=== PATIENT | male | born 1955 | race Caucasian/White ===

== ENCOUNTER 2019-01-26 02:49 | Inpatient (IN) | payer MEDICARE, OTHER ==
[2019-01-26] VITALS (8 sets, daily range): BP systolic 140–166; BP diastolic 87–99; PULSE 85–96; RESP 19–22; Ht 188 cm; Wt 80.0 kg
[~2019-01-26] VITALS: Ht 188 cm; Wt 80.0 kg
[~2019-01-26 02:49] MED LIST: HYDR25TA6 GTB; LISI30TA47 PO; MULT1CAP20 PO; PANT40TA3 PO; PARO40TA63 PO; RISP2TAB3 PO
[2019-01-26] MEDS ORDERED: hydrALAzine 20 MG INJ IV ONE (05:30)
[2019-01-26] MEDS ORDERED: LORAZEPAM 2 MG INJ IV ONE ×2 (05:30→07:00)
--- NOTE | 2019-01-26 05:38 | ERD ---
ER Documentation Chief Complaint Chief Complaint BIBA for general weakness HPI This is a 64-year-old male brought in by rescue for complaints of generalized weakness and altered mental status. Per the significant other, patient woke up and seemed confused. He had no evidence of trauma per the patient with you. A [id number] global he went to bed about 9 PM and seemed normal, woke up with middle of the night to go to the restroom. She woke up to go grab a glass of water, and noticed that when she questions and is altered. She denies any weakness or drooping face, but he seemed confused. ROS All systems reviewed and are negative except as per history of present illness. Medications Home Meds Active Scripts Multivitamins* (Multivitamin*) 1 Udcap Capsule, 1 TAB PO DAILY for 30 Days, TAB Prov:ALBERTO ZAMBRANO 05/09/16 Reported Medications Risperidone* (Risperidone*) 2 Mg Tablet, 2 MG PO HS 09/29/13 Pantoprazole* (Protonix*) 40 Mg Tablet.dr, 40 MG PO DAILY 09/29/13 Hydrochlorothiazide* (Hydrochlorothiazide*) 25 Mg Tab, 12.5 MG GTB DAILY 09/29/13 Paroxetine Hcl* (Paxil*) 40 Mg Tablet, 40 MG PO DAILY 09/29/13 Lisinopril* (Lisinopril*) 30 Mg Tablet, 40 MG PO DAILY 09/29/13 Allergies Allergies: Coded Allergies: No Known Allergy (Unverified , 01/26/19) PMhx/Soc History of Surgery: Yes (back surgery ) Anesthesia Reaction: No Hx Neurological Disorder: No Hx Respiratory Disorders: No Hx Cardiac Disorders: Yes (HTN) Hx Psychiatric Problems: Yes (prescription drug abuse (ambien)) Hx Miscellaneous Medical Probl: Yes (SEIZURE, HEP. C, insomnia) Hx Alcohol Use: Yes (daily, last drink midnight 01/26/19) Hx Substance Use: No Hx Tobacco Use: Yes Smoking Status: Never smoker Physical Exam Vitals Vital Signs Date Temp Pulse Resp B/P (MAP) Pulse Ox O2 O2 Flow FiO2 Time Delivery Rate 01/26/19 98.3 74 16 170/100 95 Room Air 05:07 (123) 01/26/19 97.9 89 16 156/94 95 02:55 (114) Physical Exam Const: No acute distress Head: Atraumatic Eyes: Normal Conjunctiva ENT: Normal External Ears, Nose and Mouth. Neck: Full range of motion. No meningismus. Resp: Clear to auscultation bilaterally Cardio: Regular rate and rhythm, no murmurs Abd: Soft, non tender, non distended. Normal bowel sounds Skin: No petechiae or rashes Back: No midline or flank tenderness Ext: No cyanosis, or edema Neur: Awake and alert Psych: Normal Mood and Affect Result Diagram: 01/26/1943101/26/19431 Results 24 hrs Laboratory Tests Test 01/26/19 04:08 01/26/19 04:32 01/26/19 04:34 01/26/19 04:47 POC Venous 2.1 mmol/L 2.0 mmol/L Lactate White Blood Count 8.2 10^3/ul Red Blood Count 4.18 10^6/ul Hemoglobin 13.9 g/dl Hematocrit 46.3 % Mean Corpuscular 110.8 fl Volume Mean Corpuscular 33.3 pg Hemoglobin Mean Corpuscular 30.0 g/dl Hemoglobin Concen t Red Cell 12.2 % Distribution Width Platelet Count 203 10^3/UL Mean Platelet 9.2 fl Volume Immature 0.600 % Granulocytes % Neutrophils % 88.5 % Lymphocytes % 5.4 % Monocytes % 4.9 % Eosinophils % 0.2 % Basophils % 0.4 % Nucleated Red 0.0 /100WBC Blood Cells % Immature 0.050 10^3/ul Granulocytes # Neutrophils # 7.3 10^3/ul Lymphocytes # 0.4 10^3/ul Monocytes # 0.4 10^3/ul Eosinophils # 0.0 10^3/ul Basophils # 0.0 10^3/ul Nucleated Red 0.0 10^3/ul Blood Cells # Prothrombin Time 13.6 Sec Prothrombin Time 1.1 Ratio INR International 1.03 Normalized Ratio Activated 31.6 Sec Partial Thrombopl ast Time Sodium Level 137 mmol/L Potassium Level 4.6 mmol/L Chloride Level 99 mmol/L Carbon Dioxide 28 mmol/L Level Anion Gap 10 Blood Urea 9 mg/dl Nitrogen Creatinine 0.61 mg/dl Est Glomerular > 60 mL/min Filtrat Rate mL/min Glucose Level 182 mg/dl Calcium Level 8.6 mg/dl Total Bilirubin 0.4 mg/dl Direct Bilirubin 0.00 mg/dl Indirect 0.4 mg/dl Bilirubin Aspartate Amino 37 IU/L Transf (AST/SGOT) Alanine 16 IU/L Aminotransferase (ALT/SGPT) Alkaline 208 IU/L Phosphatase Ammonia < 9 umol/l Troponin I < 0.012 ng/ml Total Protein 7.6 g/dl Albumin 4.0 g/dl Globulin 3.60 g/dl Albumin/Globulin 1.11 Ratio Salicylates Level < 1.0 mg/dl Acetaminophen < 10.0 ug/ml Level Ethyl Alcohol < 10.0 mg/dl Level Urine Color YELLOW Urine Clarity CLEAR Urine pH 5.0 Urine Specific 1.018 [place] Urine Ketones NEGATIVE mg/dL Urine Nitrite NEGATIVE mg/dL Urine Bilirubin NEGATIVE mg/dL Urine NEGATIVE mg/dL Urobilinogen Urine Leukocyte NEGATIVE Gina/ul Esterase Urine Hemoglobin NEGATIVE mg/dL Urine Glucose NEGATIVE mg/dL Urine Total NEGATIVE mg/dl Protein Urine Opiates Negative Screen Urine Negative Barbiturates Urine Negative Amphetamines Screen Urine Negative Benzodiazepines Screen Urine Cocaine Negative Screen Urine Negative Cannabinoids Current Medications Medications Dose Sig/Henry Start Time Status Last (Trade) Ordered Route PRN Stop Time Admin Dose Reason Admin Hydralazine 10 mg ONCE ONCE 01/26/19 DC HCl IV 05:30 (Apresoline) 01/26/19 05:31 Lorazepam 1 mg ONCE ONCE 01/26/19 DC (Ativan) IV 05:30 01/26/19 05:31 Procedures/MDM Emergency room course: Patient seen by the charge nurse. Placed in bed from evaluation pupils are continuous cardiac monitoring with continuous pulse oximetry. Serial exams are stable. Patient had blood pressure treated here in the emergency department with hydralazine. Given Ativan per request. Diagnostic studies EKG: Rate/Rhythm: [Normal Sinus Rhythm] QRS, ST, T-waves: [No changes consistent w/ acute ischemia] Impression: [No evidence of ischemia or arrhythmia] Chest X-ray 1V Interpreted by me: Soft Tissue: No acute abnormalities Bones: No acute abnormalities Mediastinum/Cardiac Silhouette/Lungs: [No acute abnormalities] Medical decision making: This very pleasant patient has what looks to be alteration in mental status. Patient will be admitted to the hospitalist who can accept the patient to service for further evaluation and management. Departure Diagnosis: Primary Impression: Altered mental status Altered mental status type: unspecified Qualified Codes: R41.82 - Altered mental status, unspecified Condition: Serious MOGHADAM,CHIP S. Jan 26, 2019 05:38
[2019-01-26] MEDS ORDERED: LISI40TA3 PO (05:45)
[2019-01-26] MEDS ORDERED: RIVA1.5C2 PO (05:45)
[2019-01-26] MEDS ORDERED: CARI350T29 PO (05:45)
[2019-01-26] MEDS ORDERED: ARIP5TAB20 PO (05:45)
[2019-01-26] MEDS ORDERED: ZOLP10TA5 PO (05:45)
[2019-01-26] MEDS ORDERED: CARB200T3 PO (05:45)
[2019-01-26] MEDS ORDERED: MIRT15TA5 PO (05:45)
[2019-01-26] MEDS ORDERED: ALPR1TAB7 PO (05:45)
[2019-01-26] MEDS ORDERED: ALBUTEROL/IPRATROPIUM (NEB) 3 ML AMP HHN PRN (07:00)
[2019-01-26] MEDS ORDERED: ONDANSETRON 4 MG INJ IV PRN (07:00)
[2019-01-26] MEDS ORDERED: ACETAMINOPHEN 325 MG TAB PO PRN (07:00)
[2019-01-26] MEDS ORDERED: NACL 0.9% 3 ML SYG IV SCH (07:00)
--- NOTE | 2019-01-26 08:55 | HP ---
Date/Time of Note Date/Time of Note DATE: 01/26/19 TIME: 08:50 Assessment/Plan VTE Prophylaxis Pharmacological prophylaxis: heparin Lines/Catheters IV Catheter Type (from Nrsg): Saline Lock Assessment/Plan Assessment/Plan 64-year-old male with a history of hypertension, seizure, hep C, history of intentional overdose, likely on [place] and Ambien in 2016 here with acute onset encephalopathy. PLAN -Not able to obtain history from patient. Head CT, U-tox and basic labs and diagnostic. This could be from polypharmacy. -Plan is to monitor in telemetry unit, obtain MRI of the brain, PT and speech/swallow eval -I held his home medications for now. -Neurology consult Result Diagram: 01/26/19 0432 01/26/19 0432 Results 24hrs Laboratory Tests Test 01/26/19 04:08 01/26/19 04:32 01/26/19 04:34 01/26/19 04:47 POC Venous Lactate 2.1 *H 2.0 White Blood Count 8.2 # Red Blood Count 4.18 L Hemoglobin 13.9 L Hematocrit 46.3 Mean Corpuscular 110.8 H Volume Mean Corpuscular 33.3 H Hemoglobin Mean Corpuscular 30.0 L Hemoglobin Concent Red Cell 12.2 Distribution Width Platelet Count 203 Mean Platelet Volume 9.2 Immature 0.600 H Granulocytes % Neutrophils % 88.5 H Lymphocytes % 5.4 L Monocytes % 4.9 Eosinophils % 0.2 Basophils % 0.4 Nucleated Red Blood 0.0 Cells % Immature 0.050 H Granulocytes # Neutrophils # 7.3 Lymphocytes # 0.4 L Monocytes # 0.4 Eosinophils # 0.0 Basophils # 0.0 Nucleated Red Blood 0.0 Cells # Prothrombin Time 13.6 Prothrombin Time 1.1 Ratio INR International 1.03 Normalized Ratio Activated 31.6 Partial Thromboplast Time Sodium Level 137 Potassium Level 4.6 Chloride Level 99 Carbon Dioxide Level 28 Anion Gap 10 Blood Urea Nitrogen 9 Creatinine 0.61 Est Glomerular > 60 Filtrat Rate mL/min Glucose Level 182 Calcium Level 8.6 Total Bilirubin 0.4 Direct Bilirubin 0.00 Indirect Bilirubin 0.4 Aspartate Amino 37 Transf (AST/SGOT) Alanine 16 Aminotransferase (AL T/SGPT) Alkaline Phosphatase 208 H Ammonia < 9 L Troponin I < 0.012 Total Protein 7.6 Albumin 4.0 Globulin 3.60 H Albumin/Globulin 1.11 Ratio Salicylates Level < 1.0 L Acetaminophen Level < 10.0 L Ethyl Alcohol Level < 10.0 H Urine Color YELLOW Urine Clarity CLEAR Urine pH 5.0 Urine Specific 1.018 [place] Urine Ketones NEGATIVE Urine Nitrite NEGATIVE Urine Bilirubin NEGATIVE Urine Urobilinogen NEGATIVE Urine Leukocyte NEGATIVE Esterase Urine Hemoglobin NEGATIVE Urine Glucose NEGATIVE Urine Total Protein NEGATIVE Urine Opiates Screen Negative Urine Barbiturates Negative Urine Amphetamines Negative Screen Urine Negative Benzodiazepines Screen Urine Cocaine Screen Negative Urine Cannabinoids Negative Test 01/26/19 07:16 Lactic Acid Level 2.3 *H Ammonia < 9 L HPI/ROS Admit Date/Time Admit Date/Time Hx of Present Illness This is a 64-year-old male with a history of hypertension, seizure, hep C, history of intentional overdose, likely on [place] and Ambien in 2015. Patient was brought to the ER for altered mentation. Patient appears restless and is not oriented and as such information is gathered from chart review and from the ER physician. Reportedly, patient woke up in the middle of the night and was noted to be altered. In the ER blood pressure was as high as 173/98. Head CT negative for acute findings. Basic labs within acceptable range. U tox was negative. PMH/Family/Social Past Medical History Medical History: other (See HPI) Medications Current Medications IV Flush (NS 3 ml) 3 ml PER PROTOCOL IV ; Start 01/26/19 at 07:00 Ondansetron HCl (Zofran Inj) 4 mg Q6H PRN IV NAUSEA/VOMITING; Start 01/26/19 at 07:00 Acetaminophen (Tylenol Tab) 650 mg Q6H PRN PO .PAIN 1-3 OR TEMP; Start 01/26/19 at 07:00 Heparin Sodium (Porcine) (Heparin (5000 Units/1ml)) 5,000 unit Q12 SC ; Start 01/26/19 at 09:00 Albuterol/ Ipratropium (Duoneb) 3 ml Q2H RESP THERAPY PRN HHN SHORTNESS OF BREATH; Start 01/26/19 at 07:00 Pantoprazole (Protonix Tab) 40 mg DAILY PO ; Start 01/26/19 at 09:00 Nicotine (Nicoderm 21 Mg/ 24hr) 1 patch ONCE ONCE TRANSDERM ; Start 01/26/19 at 09:00; Stop 01/26/19 at 09:01 Dextrose/Sodium Chloride 1,000 ml @ 100 mls/hr Q10H IV ; Start 01/26/19 at 09:00 Haloperidol (Haldol) 5 mg ONCE ONCE IM ; Start 01/26/19 at 09:00; Stop 01/26/19 at 09:01; Status UNV Coded Allergies: No Known Allergy (Unverified , 01/26/19) Past Surgical History Past Surgical Hx: other (See HPI) Family History Significant Family History: other (Unknown) Social History Alcohol Use: other (Unknown) Smoking Status: Unknown if ever smoked Drug Use: other (Unknown) Exam/Review of Systems Vital Signs Vitals Vital Signs Date Temp Pulse Resp B/P (MAP) Pulse Ox O2 O2 Flow FiO2 Time Delivery Rate 01/26/19 98.3 103 20 119/80 100 07:00 (93) 01/26/19 Room Air 05:42 Exam Constitutional: other (Patient lying in the gurney. Appears listless. Uncovering himself. Not oriented) Head: normocephalic, atraumatic Eyes: PERRL Respiratory: clear to auscultation Cardiovascular: other (Tachycardic regular rhythm) Gastrointestinal: soft Extremities: normal pulses CHIP LUTZ MD Jan 26, 2019 08:55
[2019-01-26] MEDS: PANTOPRAZOLE (EC) 40 MG TAB PO SCH (09:00)
[2019-01-26] MEDS ORDERED: HALOPERIDOL 5 MG INJ IM ONE ×2 (09:00→20:30)
[2019-01-26] MEDS ORDERED: NICOTINE (21 MG/24 HR) PATCH TRANSDERM ONE (09:00)
[2019-01-26] MEDS: DEXTROSE 5%-0.45% NACL 1,000 ML IV SCH ×2 (09:11→18:23)
[2019-01-26] MEDS: HEPARIN 5,000 UNIT/1 ML VIAL SC SCH ×2 (09:12→20:43)
--- NOTE | 2019-01-26 12:51 | PN ---
Date/Time of Note Date/Time of Note DATE: 01/26/19 TIME: 12:31 Assessment/Plan VTE Prophylaxis SCD applied (from Nsg): Yes Pharmacological prophylaxis: heparin Lines/Catheters IV Catheter Type (from Nrsg): Saline Lock Assessment/Plan Assessment/Plan 1. Acute encephalopathy, likely alcohol related, 30 beers a day, supportive care 2. Alcoholism, thiamine/folic acid, ativan prn 3. Seizure disorder, keppra 4. Hypertension, stable 5. Hep C 6. Tobacco use, patch 7. Acute bronchitis, levaquin 8. DVT prophylaxis: heparin Result Diagram: 01/26/1943101/26/19431 Results 24hrs Laboratory Tests Test 01/26/19 04:08 01/26/19 04:32 01/26/19 04:34 01/26/19 04:47 POC Venous Lactate 2.1 *H 2.0 White Blood Count 8.2 # Red Blood Count 4.18 L Hemoglobin 13.9 L Hematocrit 46.3 Mean Corpuscular 110.8 H Volume Mean Corpuscular 33.3 H Hemoglobin Mean Corpuscular 30.0 L Hemoglobin Concent Red Cell 12.2 Distribution Width Platelet Count 203 Mean Platelet Volume 9.2 Immature 0.600 H Granulocytes % Neutrophils % 88.5 H Lymphocytes % 5.4 L Monocytes % 4.9 Eosinophils % 0.2 Basophils % 0.4 Nucleated Red Blood 0.0 Cells % Immature 0.050 H Granulocytes # Neutrophils # 7.3 Lymphocytes # 0.4 L Monocytes # 0.4 Eosinophils # 0.0 Basophils # 0.0 Nucleated Red Blood 0.0 Cells # Prothrombin Time 13.6 Prothrombin Time 1.1 Ratio INR International 1.03 Normalized Ratio Activated 31.6 Partial Thromboplast Time Sodium Level 137 Potassium Level 4.6 Chloride Level 99 Carbon Dioxide Level 28 Anion Gap 10 Blood Urea Nitrogen 9 Creatinine 0.61 Est Glomerular > 60 Filtrat Rate mL/min Glucose Level 182 Calcium Level 8.6 Total Bilirubin 0.4 Direct Bilirubin 0.00 Indirect Bilirubin 0.4 Aspartate Amino 37 Transf (AST/SGOT) Alanine 16 Aminotransferase (AL T/SGPT) Alkaline Phosphatase 208 H Ammonia < 9 L Troponin I < 0.012 Total Protein 7.6 Albumin 4.0 Globulin 3.60 H Albumin/Globulin 1.11 Ratio Salicylates Level < 1.0 L Acetaminophen Level < 10.0 L Ethyl Alcohol Level < 10.0 H Urine Color YELLOW Urine Clarity CLEAR Urine pH 5.0 Urine Specific 1.018 [place] Urine Ketones NEGATIVE Urine Nitrite NEGATIVE Urine Bilirubin NEGATIVE Urine Urobilinogen NEGATIVE Urine Leukocyte NEGATIVE Esterase Urine Hemoglobin NEGATIVE Urine Glucose NEGATIVE Urine Total Protein NEGATIVE Urine Opiates Screen Negative Urine Barbiturates Negative Urine Amphetamines Negative Screen Urine Negative Benzodiazepines Screen Urine Cocaine Screen Negative Urine Cannabinoids Negative Test 01/26/19 07:16 Lactic Acid Level 2.3 *H Ammonia < 9 L Subjective 24 Hr Interval Summary Free Text/Dictation lethargic, no distress. slurred in speech cough with greenish sputum Exam/Review of Systems Exam Vitals Vital Signs Date Temp Pulse Resp B/P (MAP) Pulse Ox O2 O2 Flow FiO2 Time Delivery Rate 01/26/19 98.5 93 154/91 95 12:12 (112) 01/26/19 18 Room Air 11:50 Constitutional: oriented, other (lethargic) Head: normocephalic, atraumatic Eyes: nl conjunctiva, EOMI, nl lids, PERRL ENMT: nl external ears & nose, nl lips & teeth, nl nasal mucosa & septum Neck: supple, non-tender Respiratory: clear to auscultation, normal air movement; No congested cough, No crackles/rales, No diminished breath sounds, No intercostal retraction, No labored breathing, No respirations, No tactile fremitus, No wheezing, No other Cardiovascular: regular rate and rhythm, nl pulses; No bruits, No diastolic murmur, No edema, No gallop, No irregular rhythm, No jugular venous distention (JVD), No murmurs/extra sounds, No rub, No systolic murmur, No S3, No S4, No other Gastrointestinal: soft, nl liver, spleen, non-tender Musculoskeletal: nl extremities to inspection Extremities: normal pulses; No calf tenderness, No cyanosis, No clubbing, No edema, No pitting pedal edema, No palpable cord, No tenderness, No other Neurological: SUPERVISOR FIREARMS II-XII intact, lethargic Results Results 24hrs Laboratory Tests Test 01/26/19 04:08 01/26/19 04:32 01/26/19 04:34 01/26/19 04:47 POC Venous Lactate 2.1 *H 2.0 White Blood Count 8.2 # Red Blood Count 4.18 L Hemoglobin 13.9 L Hematocrit 46.3 Mean Corpuscular 110.8 H Volume Mean Corpuscular 33.3 H Hemoglobin Mean Corpuscular 30.0 L Hemoglobin Concent Red Cell 12.2 Distribution Width Platelet Count 203 Mean Platelet Volume 9.2 Immature 0.600 H Granulocytes % Neutrophils % 88.5 H Lymphocytes % 5.4 L Monocytes % 4.9 Eosinophils % 0.2 Basophils % 0.4 Nucleated Red Blood 0.0 Cells % Immature 0.050 H Granulocytes # Neutrophils # 7.3 Lymphocytes # 0.4 L Monocytes # 0.4 Eosinophils # 0.0 Basophils # 0.0 Nucleated Red Blood 0.0 Cells # Prothrombin Time 13.6 Prothrombin Time 1.1 Ratio INR International 1.03 Normalized Ratio Activated 31.6 Partial Thromboplast Time Sodium Level 137 Potassium Level 4.6 Chloride Level 99 Carbon Dioxide Level 28 Anion Gap 10 Blood Urea Nitrogen 9 Creatinine 0.61 Est Glomerular > 60 Filtrat Rate mL/min Glucose Level 182 Calcium Level 8.6 Total Bilirubin 0.4 Direct Bilirubin 0.00 Indirect Bilirubin 0.4 Aspartate Amino 37 Transf (AST/SGOT) Alanine 16 Aminotransferase (AL T/SGPT) Alkaline Phosphatase 208 H Ammonia < 9 L Troponin I < 0.012 Total Protein 7.6 Albumin 4.0 Globulin 3.60 H Albumin/Globulin 1.11 Ratio Salicylates Level < 1.0 L Acetaminophen Level < 10.0 L Ethyl Alcohol Level < 10.0 H Urine Color YELLOW Urine Clarity CLEAR Urine pH 5.0 Urine Specific 1.018 [place] Urine Ketones NEGATIVE Urine Nitrite NEGATIVE Urine Bilirubin NEGATIVE Urine Urobilinogen NEGATIVE Urine Leukocyte NEGATIVE Esterase Urine Hemoglobin NEGATIVE Urine Glucose NEGATIVE Urine Total Protein NEGATIVE Urine Opiates Screen Negative Urine Barbiturates Negative Urine Amphetamines Negative Screen Urine Negative Benzodiazepines Screen Urine Cocaine Screen Negative Urine Cannabinoids Negative Test 01/26/19 07:16 Lactic Acid Level 2.3 *H Ammonia < 9 L Medications Medication Current Medications IV Flush (NS 3 ml) 3 ml PER PROTOCOL IV ; Start 01/26/19 at 07:00 Ondansetron HCl (Zofran Inj) 4 mg Q6H PRN IV NAUSEA/VOMITING; Start 01/26/19 at 07:00 Acetaminophen (Tylenol Tab) 650 mg Q6H PRN PO .PAIN 1-3 OR TEMP; Start 01/26/19 at 07:00 Heparin Sodium (Porcine) (Heparin (5000 Units/1ml)) 5,000 unit Q12 SC Last administered on 01/26/19at 09:12; Admin Dose 5,000 UNIT; Start 01/26/19 at 09:00 Albuterol/ Ipratropium (Duoneb) 3 ml Q2H RESP THERAPY PRN HHN SHORTNESS OF BREATH; Start 01/26/19 at 07:00 Pantoprazole (Protonix Tab) 40 mg DAILY PO ; Start 01/26/19 at 09:00 Dextrose/Sodium Chloride 1,000 ml @ 100 mls/hr Q10H IV Last administered on 01/26/19at 09:11; Admin Dose 100 MLS/HR; Start 01/26/19 at 09:00 VADIM ARCHULETA MD Jan 26, 2019 12:44
[2019-01-26] MEDS: LEVOFLOXACIN 500 MG TAB PO SCH (13:35)
[2019-01-26] MEDS: LEVETIRACETAM 500 MG TAB PO SCH ×2 (13:35→20:41)
[2019-01-26] MEDS: LORAZEPAM 1 MG TAB PO PRN (16:03)
[2019-01-26] MEDS: LORAZEPAM 2 MG INJ IV PRN (20:44)
[2019-01-27] VITALS (14 sets, daily range): BP systolic 110–175; BP diastolic 66–95; PULSE 68–95; RESP 19–22
[2019-01-27] MEDS ORDERED: hydrALAzine 20 MG INJ IV ONE (00:30)
[2019-01-27] MEDS ORDERED: LABETALOL HCL 20MG INJ IV ONE (03:00)
[2019-01-27] MEDS: DEXTROSE 5%-0.45% NACL 1,000 ML IV SCH ×2 (05:52→15:00)
[2019-01-27] MEDS: LORAZEPAM 2 MG INJ IV PRN ×3 (07:38→18:23)
[2019-01-27] MEDS: LEVOFLOXACIN 500 MG TAB PO SCH (09:08)
[2019-01-27] MEDS: PANTOPRAZOLE (EC) 40 MG TAB PO SCH (09:09)
[2019-01-27] MEDS: FOLIC ACID 1 MG TAB PO SCH (09:09)
[2019-01-27] MEDS: THIAMINE 100 MG TAB PO SCH (09:09)
[2019-01-27] MEDS: LEVETIRACETAM 500 MG TAB PO SCH ×2 (09:09→21:13)
[2019-01-27] MEDS: HEPARIN 5,000 UNIT/1 ML VIAL SC SCH ×2 (09:25→21:14)
[2019-01-27] MEDS: COLLAGENASE 5 GM (UD JAR) TOP SCH (10:12)
--- NOTE | 2019-01-27 14:33 | PN ---
Date/Time of Note Date/Time of Note DATE: 01/27/19 TIME: 14:31 Assessment/Plan VTE Prophylaxis Risk score (from Ns)>0 risk: 4 SCD applied (from Ns): Yes Pharmacological prophylaxis: heparin Lines/Catheters IV Catheter Type (from Nrsg): Peripheral IV Assessment/Plan Assessment/Plan 1. Acute encephalopathy, likely alcohol related, 30 beers a day, supportive care, continue PT 2. Alcoholism, thiamine/folic acid, ativan prn 3. Seizure disorder, keppra 4. Hypertension, stable 5. Hep C 6. Tobacco use, patch 7. Acute bronchitis, levaquin 8. DVT prophylaxis: heparin Result Diagram: 01/27/1951801/27/19518 Results 24hrs Laboratory Tests Test 01/27/19 05:19 White Blood Count 6.6 Red Blood Count 4.55 L Hemoglobin 14.5 Hematocrit 43.2 Mean Corpuscular Volume 94.9 Mean Corpuscular Hemoglobin 31.9 Mean Corpuscular Hemoglobin Concent 33.6 Red Cell Distribution Width 12.6 Platelet Count 239 Mean Platelet Volume 9.4 Immature Granulocytes % 0.300 Neutrophils % 75.4 Lymphocytes % 15.4 Monocytes % 8.4 Eosinophils % 0.2 Basophils % 0.3 Nucleated Red Blood Cells % 0.0 Immature Granulocytes # 0.020 Neutrophils # 4.9 Lymphocytes # 1.0 Monocytes # 0.6 Eosinophils # 0.0 Basophils # 0.0 Nucleated Red Blood Cells # 0.0 Sodium Level 137 Potassium Level 3.9 Chloride Level 101 Carbon Dioxide Level 26 Anion Gap 10 Blood Urea Nitrogen 6 L Creatinine 0.53 L Est Glomerular Filtrat Rate mL/min > 60 Glucose Level 120 # Calcium Level 8.7 Magnesium Level 2.1 Total Bilirubin 0.5 Direct Bilirubin 0.00 Indirect Bilirubin 0.5 Aspartate Amino Transf (AST/SGOT) 44 Alanine Aminotransferase (ALT/SGPT) 19 Alkaline Phosphatase 215 H Total Protein 7.6 Albumin 3.8 Globulin 3.80 H Albumin/Globulin Ratio 1.00 Subjective 24 Hr Interval Summary Free Text/Dictation still with slurred speech, needs a walker to keep balance Exam/Review of Systems Exam Vitals Vital Signs Date Temp Pulse Resp B/P (MAP) Pulse Ox O2 O2 Flow FiO2 Time Delivery Rate 01/27/19 77 12:01 01/27/19 98.1 19 110/67 98 11:03 (81) 3/12/19 21 16:39 01/26/19 Room Air 11:50 Intake and Output 01/26/19 01/26/19 01/27/19 1515:00 23:00 07:00 IntakeIntake Total 600 ml 700 ml BalanceBalance 600 ml 700 ml Constitutional: alert, oriented, well developed Head: normocephalic, atraumatic Eyes: nl conjunctiva, EOMI, nl lids, PERRL ENMT: nl external ears & nose, nl lips & teeth, nl nasal mucosa & septum Neck: supple, non-tender Respiratory: clear to auscultation, normal air movement; No congested cough, No crackles/rales, No diminished breath sounds, No intercostal retraction, No labored breathing, No respirations, No tactile fremitus, No wheezing, No other Cardiovascular: regular rate and rhythm, nl pulses; No bruits, No diastolic murmur, No edema, No gallop, No irregular rhythm, No jugular venous distention (JVD), No murmurs/extra sounds, No rub, No systolic murmur, No S3, No S4, No other Gastrointestinal: soft, nl liver, spleen, non-tender Musculoskeletal: nl extremities to inspection Extremities: normal pulses; No calf tenderness, No cyanosis, No clubbing, No edema, No pitting pedal edema, No palpable cord, No tenderness, No other Neurological: SUPERVISOR LIME II-XII intact, nl mental status, nl speech, nl strength Results Results 24hrs Laboratory Tests Test 01/27/19 05:19 White Blood Count 6.6 Red Blood Count 4.55 L Hemoglobin 14.5 Hematocrit 43.2 Mean Corpuscular Volume 94.9 Mean Corpuscular Hemoglobin 31.9 Mean Corpuscular Hemoglobin Concent 33.6 Red Cell Distribution Width 12.6 Platelet Count 239 Mean Platelet Volume 9.4 Immature Granulocytes % 0.300 Neutrophils % 75.4 Lymphocytes % 15.4 Monocytes % 8.4 Eosinophils % 0.2 Basophils % 0.3 Nucleated Red Blood Cells % 0.0 Immature Granulocytes # 0.020 Neutrophils # 4.9 Lymphocytes # 1.0 Monocytes # 0.6 Eosinophils # 0.0 Basophils # 0.0 Nucleated Red Blood Cells # 0.0 Sodium Level 137 Potassium Level 3.9 Chloride Level 101 Carbon Dioxide Level 26 Anion Gap 10 Blood Urea Nitrogen 6 L Creatinine 0.53 L Est Glomerular Filtrat Rate mL/min > 60 Glucose Level 120 # Calcium Level 8.7 Magnesium Level 2.1 Total Bilirubin 0.5 Direct Bilirubin 0.00 Indirect Bilirubin 0.5 Aspartate Amino Transf (AST/SGOT) 44 Alanine Aminotransferase (ALT/SGPT) 19 Alkaline Phosphatase 215 H Total Protein 7.6 Albumin 3.8 Globulin 3.80 H Albumin/Globulin Ratio 1.00 Medications Medication Current Medications IV Flush (NS 3 ml) 3 ml PER PROTOCOL IV ; Start 01/26/19 at 07:00 Ondansetron HCl (Zofran Inj) 4 mg Q6H PRN IV NAUSEA/VOMITING; Start 01/26/19 at 07:00 Acetaminophen (Tylenol Tab) 650 mg Q6H PRN PO .PAIN 1-3 OR TEMP; Start 01/26/19 at 07:00 Heparin Sodium (Porcine) (Heparin (5000 Units/1ml)) 5,000 unit Q12 SC Last administered on 01/27/19 09:25; Admin Dose 5,000 UNIT; Start 01/26/19 at 09:00 Albuterol/ Ipratropium (Duoneb) 3 ml Q2H RESP THERAPY PRN HHN SHORTNESS OF BREATH Last administered on 01/26/19 16:37; Admin Dose 3 ML; Start 01/26/19 at 07:00 Pantoprazole (Protonix Tab) 40 mg DAILY PO Last administered on 01/27/19 09:09; Admin Dose 40 MG; Start 01/26/19 at 09:00 Dextrose/Sodium Chloride 1,000 ml @ 100 mls/hr Q10H IV Last administered on 05:52; Admin Dose 100 MLS/HR; Start 01/26/19 at 09:00 Thiamine HCl (Vitamin B1) 100 mg DAILY PO Last administered on 01/27/19 09:09; Admin Dose 100 MG; Start 01/27/19 at 09:00 Folic Acid (Folic Acid) 1 mg DAILY PO Last administered on 01/27/19 09:09; Admin Dose 1 MG; Start 01/27/19 at 09:00 Lorazepam (Ativan) 1 mg Q6H PRN PO ANXIETY Last administered on 01/26/19 16:03; Admin Dose 1 MG; Start 01/26/19 at 13:00 Levetiracetam (Keppra) 500 mg BID PO Last administered on 01/27/19 09:09; Admin Dose 500 MG; Start 01/26/19 at 13:00 Levofloxacin (Levaquin) 500 mg DAILY PO Last administered on 01/27/19 09:08; Admin Dose 500 MG; Start 01/26/19 at 13:00 Lorazepam (Ativan) 1 mg Q4H PRN IV AGITATION/ANXIETY Last administered on 01/27/19 13:12; Admin Dose 1 MG; Start 01/26/19 at 19:30 Collagenase (Santyl) 1 applic DAILY TOP Last administered on 01/27/19 10:12; Admin Dose 1 APPLIC; Start 01/27/19 at 10:30 VADIM ARCHULETA MD Jan 27, 2019 14:33
[2019-01-27] MEDS: LORAZEPAM 1 MG TAB PO PRN (15:23)
--- NOTE | 2019-01-27 16:36 | PSY ---
Date/Time of Note Date/Time of Note DATE: 01/27/19 TIME: 16:24 Psychiatric Subjective Eval Consent Pt consented to telemedicine: No Subjective Evaluation Patient location: inpatient Chief Complaint: BIBA for general weakness History of present illness Patient is a 64-year-old male with history of hypertension, seizure, hep C, history of intentional overdose. On a face to face evaluation, patient is disorganized, confused., preoccupied bout being discharged. He talks to himself, responding to internal stimuli. Patient has poor impulse control, poor coping skills. Explained risk and benefits of medications to patient. Past psychiatric history Long history of Depression and cognitive impairment Hospitalization: yes Medical history Problems Medical Problems: (1) Accidental zolpidem overdose Status: Acute (2) Acute encephalopathy Status: Acute (3) Altered mental status Status: Acute (4) Dehydration Status: Acute Allergies: Coded Allergies: No Known Allergy (Unverified , 01/26/19) Substance Abuse Substance abuse history: Yes Prior substance abuse treatmen: Yes Social History Marital status: single DPA/Conservatorship: No Psychiatric Objective Eval Review of Systems: Review of Systems: Not Applicable Physical Examination: Physical Examination: Not Applicable Appetite: Decreased Energy: Decreased Interest: Decreased Mental Status Examination: Appearance: Disheveled Eye Contact: Poor Behavior: Suspicious, Agitated Speech: Clear AFFECT: Anxious Mood: Irritable Though Process: Linear Thought Content: Hallucinations Suicidal: No Homicidal: No On 72 hour hold: No Orientation: x2 Insight: Moderate Judgement: Moderate Attention Span: Distractible Laboratory Results Laboratory Tests Test 01/26/19 04:08 01/26/19 04:32 01/26/19 04:34 01/26/19 04:47 POC Venous 2.1 mmol/L 2.0 mmol/L Lactate White Blood Count 8.2 10^3/ul Red Blood Count 4.18 10^6/ul Hemoglobin 13.9 g/dl Hematocrit 46.3 % Mean Corpuscular 110.8 fl Volume Mean Corpuscular 33.3 pg Hemoglobin Mean Corpuscular 30.0 g/dl Hemoglobin Concen t Red Cell 12.2 % Distribution Width Platelet Count 203 10^3/UL Mean Platelet 9.2 fl Volume Immature 0.600 % Granulocytes % Neutrophils % 88.5 % Lymphocytes % 5.4 % Monocytes % 4.9 % Eosinophils % 0.2 % Basophils % 0.4 % Nucleated Red 0.0 /100WBC Blood Cells % Immature 0.050 10^3/ul Granulocytes # Neutrophils # 7.3 10^3/ul Lymphocytes # 0.4 10^3/ul Monocytes # 0.4 10^3/ul Eosinophils # 0.0 10^3/ul Basophils # 0.0 10^3/ul Nucleated Red 0.0 10^3/ul Blood Cells # Prothrombin Time 13.6 Sec Prothrombin Time 1.1 Ratio INR International 1.03 Normalized Ratio Activated 31.6 Sec Partial Thrombopl ast Time Sodium Level 137 mmol/L Potassium Level 4.6 mmol/L Chloride Level 99 mmol/L Carbon Dioxide 28 mmol/L Level Anion Gap 10 Blood Urea 9 mg/dl Nitrogen Creatinine 0.61 mg/dl Est Glomerular > 60 mL/min Filtrat Rate mL/min Glucose Level 182 mg/dl Calcium Level 8.6 mg/dl Total Bilirubin 0.4 mg/dl Direct Bilirubin 0.00 mg/dl Indirect 0.4 mg/dl Bilirubin Aspartate Amino 37 IU/L Transf (AST/SGOT) Alanine 16 IU/L Aminotransferase (ALT/SGPT) Alkaline 208 IU/L Phosphatase Ammonia < 9 umol/l Troponin I < 0.012 ng/ml Total Protein 7.6 g/dl Albumin 4.0 g/dl Globulin 3.60 g/dl Albumin/Globulin 1.11 Ratio Salicylates Level < 1.0 mg/dl Acetaminophen < 10.0 ug/ml Level Ethyl Alcohol < 10.0 mg/dl Level Urine Color YELLOW Urine Clarity CLEAR Urine pH 5.0 Urine Specific 1.018 [place] Urine Ketones NEGATIVE mg/dL Urine Nitrite NEGATIVE mg/dL Urine Bilirubin NEGATIVE mg/dL Urine NEGATIVE mg/dL Urobilinogen Urine Leukocyte NEGATIVE Gina/ul Esterase Urine Hemoglobin NEGATIVE mg/dL Urine Glucose NEGATIVE mg/dL Urine Total NEGATIVE mg/dl Protein Urine Opiates Negative Screen Urine Negative Barbiturates Urine Negative Amphetamines Screen Urine Negative Benzodiazepines Screen Urine Cocaine Negative Screen Urine Negative Cannabinoids Test 01/26/19 07:16 01/27/19 05:19 Lactic Acid Level 2.3 mmol/L Ammonia < 9 umol/l White Blood Count 6.6 10^3/ul Red Blood Count 4.55 10^6/ul Hemoglobin 14.5 g/dl Hematocrit 43.2 % Mean Corpuscular 94.9 fl Volume Mean Corpuscular 31.9 pg Hemoglobin Mean Corpuscular 33.6 g/dl Hemoglobin Concen t Red Cell 12.6 % Distribution Width Platelet Count 239 10^3/UL Mean Platelet 9.4 fl Volume Immature 0.300 % Granulocytes % Neutrophils % 75.4 % Lymphocytes % 15.4 % Monocytes % 8.4 % Eosinophils % 0.2 % Basophils % 0.3 % Nucleated Red 0.0 /100WBC Blood Cells % Immature 0.020 10^3/ul Granulocytes # Neutrophils # 4.9 10^3/ul Lymphocytes # 1.0 10^3/ul Monocytes # 0.6 10^3/ul Eosinophils # 0.0 10^3/ul Basophils # 0.0 10^3/ul Nucleated Red 0.0 10^3/ul Blood Cells # Sodium Level 137 mmol/L Potassium Level 3.9 mmol/L Chloride Level 101 mmol/L Carbon Dioxide 26 mmol/L Level Anion Gap 10 Blood Urea 6 mg/dl Nitrogen Creatinine 0.53 mg/dl Est Glomerular > 60 mL/min Filtrat Rate mL/min Glucose Level 120 mg/dl Calcium Level 8.7 mg/dl Magnesium Level 2.1 mg/dl Total Bilirubin 0.5 mg/dl Direct Bilirubin 0.00 mg/dl Indirect 0.5 mg/dl Bilirubin Aspartate Amino 44 IU/L Transf (AST/SGOT) Alanine 19 IU/L Aminotransferase (ALT/SGPT) Alkaline 215 IU/L Phosphatase Total Protein 7.6 g/dl Albumin 3.8 g/dl Globulin 3.80 g/dl Albumin/Globulin 1.00 Ratio Assessment and Plan Assessment/Diagnosis Diagnosis Major depression recurrent with psychosis, Cognitive Impairment Recommendation/Plan Medication Management Abilify 5mg daily, carbamazepine 200mg daily, Remeron 15mg daily, Rivstigmine 1.5mg daily Discharge Disposition: Other Legal Status: Voluntary (Does not meet criteria for 5150 hold) PORTER KWON NP Jan 27, 2019 16:35
[2019-01-27] MEDS: ARIPIPRAZOLE 5 MG TAB PO SCH (17:54)
[2019-01-27] MEDS ORDERED: DIPHENHYDRAMINE 50 MG INJ IV ONE (21:00)
[2019-01-27] MEDS ORDERED: HALOPERIDOL 5 MG INJ IM ONE (21:00)
[2019-01-27] MEDS: MIRTAZAPINE 15 MG TAB PO SCH (21:12)
[2019-01-27] MEDS: CARBAMAZEPINE 200 MG TAB PO SCH (23:51)
[2019-01-27] MEDS: RIVASTIGMINE 1.5 MG CAP PO SCH (23:51)
[2019-01-28] VITALS (16 sets, daily range): BP systolic 122–156; BP diastolic 68–91; PULSE 65–96; RESP 16–19
[2019-01-28] MEDS: DEXTROSE 5%-0.45% NACL 1,000 ML IV SCH ×3 (01:00→20:50)
[2019-01-28] MEDS: LORAZEPAM 2 MG INJ IV PRN (01:11)
[2019-01-28] MEDS: ARIPIPRAZOLE 5 MG TAB PO SCH (08:47)
[2019-01-28] MEDS: CARBAMAZEPINE 200 MG TAB PO SCH ×2 (08:47→22:18)
[2019-01-28] MEDS: LORAZEPAM 1 MG TAB PO PRN ×3 (08:47→20:50)
[2019-01-28] MEDS: COLLAGENASE 5 GM (UD JAR) TOP SCH (08:47)
[2019-01-28] MEDS: LEVETIRACETAM 500 MG TAB PO SCH ×2 (08:48→20:50)
[2019-01-28] MEDS: PANTOPRAZOLE (EC) 40 MG TAB PO SCH (08:48)
[2019-01-28] MEDS: FOLIC ACID 1 MG TAB PO SCH (08:48)
[2019-01-28] MEDS: THIAMINE 100 MG TAB PO SCH (08:48)
[2019-01-28] MEDS: RIVASTIGMINE 1.5 MG CAP PO SCH ×2 (08:48→22:19)
[2019-01-28] MEDS: LEVOFLOXACIN 500 MG TAB PO SCH (08:48)
[2019-01-28] MEDS: HEPARIN 5,000 UNIT/1 ML VIAL SC SCH ×2 (09:03→20:55)
--- NOTE | 2019-01-28 12:40 | PN ---
Date/Time of Note Date/Time of Note DATE: 01/28/19 TIME: 12:35 Assessment/Plan VTE Prophylaxis Risk score (from Ns)>0 risk: 3 SCD applied (from Ns): Yes Pharmacological prophylaxis: heparin Lines/Catheters IV Catheter Type (from Nrsg): Peripheral IV Assessment/Plan Assessment/Plan 1. Acute encephalopathy, likely alcohol related, 30 beers a day, supportive care, continue PT 2. Alcoholism, thiamine/folic acid, ativan prn, still with unsteady gait 3. Seizure disorder, keppra 4. Hypertension, stable 5. Hep C 6. Tobacco use, patch 7. Acute bronchitis, levaquin 8. Major depression, psychiatry note reviewed 8. DVT prophylaxis: heparin Result Diagram: 01/27/1951801/27/19518 Subjective 24 Hr Interval Summary Free Text/Dictation more oriented and less slurring today Exam/Review of Systems Exam Vitals Vital Signs Date Temp Pulse Resp B/P (MAP) Pulse Ox O2 O2 Flow FiO2 Time Delivery Rate 01/28/19 66 12:26 01/28/19 98.0 18 131/78 97 Room Air 11:56 (95) 01/27/19 21 21:00 Intake and Output 01/27/19 01/27/19 01/28/19 1515:00 23:00 07:00 IntakeIntake Total 500 ml 500 ml OutputOutput Total 350 ml BalanceBalance 500 ml 150 ml Constitutional: alert, oriented, well developed Psych: no complaints, nl mood/affect Head: normocephalic, atraumatic Eyes: nl conjunctiva, EOMI, nl lids, PERRL ENMT: nl external ears & nose, nl lips & teeth, nl nasal mucosa & septum Neck: supple, non-tender Respiratory: clear to auscultation, normal air movement; No congested cough, No crackles/rales, No diminished breath sounds, No intercostal retraction, No labored breathing, No respirations, No tactile fremitus, No wheezing, No other Cardiovascular: regular rate and rhythm, nl pulses; No bruits, No diastolic murmur, No edema, No gallop, No irregular rhythm, No jugular venous distention (JVD), No murmurs/extra sounds, No rub, No systolic murmur, No S3, No S4, No other Gastrointestinal: soft, nl liver, spleen, non-tender Musculoskeletal: nl extremities to inspection Extremities: normal pulses; No calf tenderness, No cyanosis, No clubbing, No edema, No pitting pedal edema, No palpable cord, No tenderness, No other Neurological: [employer] II-XII intact, nl mental status, nl speech, nl strength Medications Medication Current Medications IV Flush (NS 3 ml) 3 ml PER PROTOCOL IV ; Start 01/26/19 at 07:00 Ondansetron HCl (Zofran Inj) 4 mg Q6H PRN IV NAUSEA/VOMITING; Start 01/26/19 at 07:00 Acetaminophen (Tylenol Tab) 650 mg Q6H PRN PO .PAIN 1-3 OR TEMP; Start 01/26/19 at 07:00 Heparin Sodium (Porcine) (Heparin (5000 Units/1ml)) 5,000 unit Q12 SC Last administered on 01/28/19 09:03; Admin Dose 5,000 UNIT; Start 01/26/19 at 09:00 Albuterol/ Ipratropium (Duoneb) 3 ml Q2H RESP THERAPY PRN HHN SHORTNESS OF BREATH Last administered on 01/26/19 16:37; Admin Dose 3 ML; Start 01/26/19 at 07:00 Pantoprazole (Protonix Tab) 40 mg DAILY PO Last administered on 01/28/19 08:48; Admin Dose 40 MG; Start 01/26/19 at 09:00 Dextrose/Sodium Chloride 1,000 ml @ 100 mls/hr Q10H IV Last administered on 01/27/19 05:52; Admin Dose 100 MLS/HR; Start 01/26/19 at 09:00 Thiamine HCl (Vitamin B1) 100 mg DAILY PO Last administered on 01/28/19 08:48; Admin Dose 100 MG; Start 01/27/19 at 09:00 Folic Acid (Folic Acid) 1 mg DAILY PO Last administered on 01/28/19 08:48; Admin Dose 1 MG; Start 01/27/19 at 09:00 Lorazepam (Ativan) 1 mg Q6H PRN PO ANXIETY Last administered on 01/28/19 08:47; Admin Dose 1 MG; Start 01/26/19 at 13:00 Levetiracetam (Keppra) 500 mg BID PO Last administered on 01/28/19 08:48; Admin Dose 500 MG; Start 01/26/19 at 13:00 Levofloxacin (Levaquin) 500 mg DAILY PO Last administered on 01/28/19 08:48; Admin Dose 500 MG; Start 01/26/19 at 13:00 Lorazepam (Ativan) 1 mg Q4H PRN IV AGITATION/ANXIETY Last administered on 01/28/19 01:11; Admin Dose 1 MG; Start 01/26/19 at 19:30 Collagenase (Santyl) 1 applic DAILY TOP Last administered on 01/28/19 08:47; Admin Dose 1 APPLIC; Start 01/27/19 at 10:30 Aripiprazole (Abilify) 5 mg DAILY PO Last administered on 01/28/19 08:47; Admin Dose 5 MG; Start 01/27/19 at 17:00 Carbamazepine (Tegretol) 200 mg BID PO Last administered on 01/28/19 08:47; A dmin Dose 200 MG; Start 01/27/19 at 21:00 Mirtazapine (Remeron) 15 mg HS PO Last administered on 01/27/19 21:12; Admin Dose 15 MG; Start 01/27/19 at 21:00 Rivastigmine Tartrate (Exelon) 1.5 mg BID PO Last administered on 01/28/19 08:48; Admin Dose 1.5 MG; Start 01/27/19 at 21:00 VADIM ARCHULETA MD Jan 28, 2019 12:40
[2019-01-28] MEDS: NICOTINE (21 MG/24 HR) PATCH TRANSDERM SCH (14:22)
[2019-01-28] MEDS: HYDROCODONE/APAP (5/325) TAB NGT PRN ×2 (14:22→22:18)
[2019-01-28] MEDS: MIRTAZAPINE 15 MG TAB PO SCH (20:50)
[2019-01-29] VITALS (20 sets, daily range): BP systolic 130–166; BP diastolic 75–92; PULSE 60–89; RESP 16–20
[2019-01-29] MEDS: HYDROCODONE/APAP (5/325) TAB NGT PRN ×3 (04:24→17:40)
[2019-01-29] MEDS: LORAZEPAM 1 MG TAB PO PRN ×3 (05:20→22:14)
[2019-01-29] MEDS: DEXTROSE 5%-0.45% NACL 1,000 ML IV SCH (06:19)
[2019-01-29] MEDS: NICOTINE (21 MG/24 HR) PATCH TRANSDERM SCH (09:00)
[2019-01-29] MEDS: COLLAGENASE 5 GM (UD JAR) TOP SCH (09:00)
[2019-01-29] MEDS: RIVASTIGMINE 1.5 MG CAP PO SCH ×3 (09:19→23:08)
[2019-01-29] MEDS: ARIPIPRAZOLE 5 MG TAB PO SCH (09:19)
[2019-01-29] MEDS: LEVOFLOXACIN 500 MG TAB PO SCH (09:19)
[2019-01-29] MEDS: THIAMINE 100 MG TAB PO SCH (09:19)
[2019-01-29] MEDS: FOLIC ACID 1 MG TAB PO SCH (09:19)
[2019-01-29] MEDS: CARBAMAZEPINE 200 MG TAB PO SCH ×3 (09:20→23:08)
[2019-01-29] MEDS: LEVETIRACETAM 500 MG TAB PO SCH ×3 (09:20→23:07)
[2019-01-29] MEDS: PANTOPRAZOLE (EC) 40 MG TAB PO SCH (09:23)
[2019-01-29] MEDS: HEPARIN 5,000 UNIT/1 ML VIAL SC SCH ×2 (09:28→21:22)
--- NOTE | 2019-01-29 13:54 | PN ---
Date/Time of Note Date/Time of Note DATE: 01/29/19 TIME: 13:51 Assessment/Plan VTE Prophylaxis Risk score (from Ns)>0 risk: 3 SCD applied (from Ns): Yes Pharmacological prophylaxis: heparin Lines/Catheters IV Catheter Type (from Nrsg): Peripheral IV Assessment/Plan Assessment/Plan 1. Acute encephalopathy, alcohol related, 30 beers a day, supportive care, continue PT 2. Alcoholism, thiamine/folic acid, ativan prn 3. Seizure disorder, keppra 4. Hypertension, stable 5. Hep C 6. Tobacco use, patch 7. Acute bronchitis, levaquin 8. Major depression, psychiatry note reviewed 8. DVT prophylaxis: heparin Result Diagram: 01/29/19 0538 01/29/19 0538 Results 24hrs Laboratory Tests Test 01/29/19 05:38 White Blood Count 5.1 # Red Blood Count 4.34 L Hemoglobin 14.0 Hematocrit 41.8 L Mean Corpuscular Volume 96.3 Mean Corpuscular Hemoglobin 32.3 Mean Corpuscular Hemoglobin Concent 33.5 Red Cell Distribution Width 12.3 Platelet Count 193 Mean Platelet Volume 9.5 Immature Granulocytes % 0.200 Neutrophils % 64.0 Lymphocytes % 24.0 Monocytes % 8.1 Eosinophils % 3.3 Basophils % 0.4 Nucleated Red Blood Cells % 0.0 Immature Granulocytes # 0.010 Neutrophils # 3.3 Lymphocytes # 1.2 Monocytes # 0.4 Eosinophils # 0.2 Basophils # 0.0 Nucleated Red Blood Cells # 0.0 Sodium Level 133 L Potassium Level 4.4 Chloride Level 102 Carbon Dioxide Level 25 Anion Gap 6 Blood Urea Nitrogen 11 Creatinine 0.51 L Est Glomerular Filtrat Rate mL/min > 60 Glucose Level 117 Calcium Level 8.7 Subjective 24 Hr Interval Summary Free Text/Dictation intermittently confused, pulled IV access Exam/Review of Systems Exam Vitals Vital Signs Date Temp Pulse Resp B/P (MAP) Pulse Ox O2 O2 Flow FiO2 Time Delivery Rate 01/29/19 Room Air 12:46 01/29/19 78 12:17 01/29/19 98.0 18 131/79 96 11:10 (96) 01/27/19 21 21:00 Intake and Output 01/28/19 01/28/19 01/29/19 1515:00 23:00 07:00 IntakeIntake Total 1100 ml 600 ml OutputOutput Total 500 ml 400 ml BalanceBalance 600 ml 200 ml Constitutional: alert, well developed Head: normocephalic, atraumatic Eyes: nl conjunctiva, EOMI, nl lids, PERRL ENMT: nl external ears & nose, nl lips & teeth, nl nasal mucosa & septum Neck: supple, non-tender Respiratory: clear to auscultation, normal air movement; No congested cough, No crackles/rales, No diminished breath sounds, No intercostal retraction, No labored breathing, No respirations, No tactile fremitus, No wheezing, No other Cardiovascular: regular rate and rhythm, nl pulses; No bruits, No diastolic murmur, No edema, No gallop, No irregular rhythm, No jugular venous distention (JVD), No murmurs/extra sounds, No rub, No systolic murmur, No S3, No S4, No other Gastrointestinal: soft, nl liver, spleen, non-tender; No ascites, No bowel sounds, No distended, No firm, No hepatomegaly, No mass, No rebound or guarding, No splenomegaly, No surgical scars, No tender, No other Musculoskeletal: nl extremities to inspection Extremities: normal pulses; No calf tenderness, No cyanosis, No clubbing, No edema, No pitting pedal edema, No palpable cord, No tenderness, No other Neurological: [employer] II-XII intact, nl mental status, nl speech, nl strength Results Results 24hrs Laboratory Tests Test 01/29/19 05:38 White Blood Count 5.1 # Red Blood Count 4.34 L Hemoglobin 14.0 Hematocrit 41.8 L Mean Corpuscular Volume 96.3 Mean Corpuscular Hemoglobin 32.3 Mean Corpuscular Hemoglobin Concent 33.5 Red Cell Distribution Width 12.3 Platelet Count 193 Mean Platelet Volume 9.5 Immature Granulocytes % 0.200 Neutrophils % 64.0 Lymphocytes % 24.0 Monocytes % 8.1 Eosinophils % 3.3 Basophils % 0.4 Nucleated Red Blood Cells % 0.0 Immature Granulocytes # 0.010 Neutrophils # 3.3 Lymphocytes # 1.2 Monocytes # 0.4 Eosinophils # 0.2 Basophils # 0.0 Nucleated Red Blood Cells # 0.0 Sodium Level 133 L Potassium Level 4.4 Chloride Level 102 Carbon Dioxide Level 25 Anion Gap 6 Blood Urea Nitrogen 11 Creatinine 0.51 L Est Glomerular Filtrat Rate mL/min > 60 Glucose Level 117 Calcium Level 8.7 Medications Medication Current Medications IV Flush (NS 3 ml) 3 ml PER PROTOCOL IV ; Start 01/26/19 at 07:00 Ondansetron HCl (Zofran Inj) 4 mg Q6H PRN IV NAUSEA/VOMITING; Start 01/26/19 at 07:00 Acetaminophen (Tylenol Tab) 650 mg Q6H PRN PO .PAIN 1-3 OR TEMP; Start 01/26/19 at 07:00 Heparin Sodium (Porcine) (Heparin (5000 Units/1ml)) 5,000 unit Q12 SC Last administered on 01/29/19 09:28; Admin Dose 5,000 UNIT; Start 01/26/19 at 09:00 Albuterol/ Ipratropium (Duoneb) 3 ml Q2H RESP THERAPY PRN HHN SHORTNESS OF BREATH Last administered on 01/26/19 16:37; Admin Dose 3 ML; Start 01/26/19 at 07:00 Pantoprazole (Protonix Tab) 40 mg DAILY PO Last administered on 01/29/19 09:23; Admin Dose 40 MG; Start 01/26/19 at 09:00 Dextrose/Sodium Chloride 1,000 ml @ 100 mls/hr Q10H IV Last administered on 01/29/19 06:19; Admin Dose 100 MLS/HR; Start 01/26/19 at 09:00 Thiamine HCl (Vitamin B1) 100 mg DAILY PO Last administered on 01/29/19 09:19; Admin Dose 100 MG; Start 01/27/19 at 09:00 Folic Acid (Folic Acid) 1 mg DAILY PO Last administered on 01/29/19 09:19; Admin Dose 1 MG; Start 01/27/19 at 09:00 Levetiracetam (Keppra) 500 mg BID PO Last administered on 01/29/19 09:20; Admin Dose 500 MG; Start 01/26/19 at 13:00 Levofloxacin (Levaquin) 500 mg DAILY PO Last administered on 01/29/19 09:19; Admin Dose 500 MG; Start 01/26/19 at 13:00 Lorazepam (Ativan) 1 mg Q4H PRN IV AGITATION/ANXIETY Last administered on 01/28/19 01:11; Admin Dose 1 MG; Start 01/26/19 at 19:30 Collagenase (Santyl) 1 applic DAILY TOP Last administered on 01/28/19 08:47; Admin Dose 1 APPLIC; Start 01/27/19 at 10:30 Aripiprazole (Abilify) 5 mg DAILY PO Last administered on 01/29/19 09:19; Admin Dose 5 MG; Start 01/27/19 at 17:00 Carbamazepine (Tegretol) 200 mg BID PO Last administered on 01/29/19 09:20; Admin Dose 200 MG; Start 01/27/19 at 21:00 Mirtazapine (Remeron) 15 mg HS PO Last administered on 01/28/19 20:50; Admin Dose 15 MG; Start 01/27/19 at 21:00 Rivastigmine Tartrate (Exelon) 1.5 mg BID PO Last administered on 01/29/19 09:19; Admin Dose 1.5 MG; Start 01/27/19 at 21:00 Lorazepam (Ativan) 2 mg Q6H PRN PO ANXIETY Last administered on 01/29/19 11:37; Admin Dose 2 MG; Start 01/28/19 at 13:00 Acetaminophen/ Hydrocodone Bitart ([place] (5/325)) 1 tab Q4H PRN NGT MODERATE PAIN LEVEL 4-6 Last administered on 01/29/19 09:29; Admin Dose 1 TAB; Start 01/28/19 at 13:00 Nicotine (Nicoderm 21 Mg/ 24hr) 1 patch DAILY TRANSDERM Last administered on 01/28/19 14:22; Admin Dose 1 PATCH; Start 01/28/19 at 13:00 VADIM ARCHULETA MD Jan 29, 2019 13:54
[2019-01-29] MEDS: LORAZEPAM 2 MG INJ IV PRN ×2 (17:40→21:46)
[2019-01-29] MEDS: MIRTAZAPINE 15 MG TAB PO SCH ×2 (21:00→23:08)
[2019-01-30] VITALS (17 sets, daily range): BP systolic 125–180; BP diastolic 75–98; PULSE 76–113; RESP 18–20
[2019-01-30] MEDS: LORAZEPAM 2 MG INJ IV PRN ×2 (02:06→09:37)
[2019-01-30] MEDS ORDERED: hydrALAzine 20 MG INJ IV ONE (03:22)
[2019-01-30] MEDS ORDERED: HALOPERIDOL 5 MG INJ IM ONE (03:23)
[2019-01-30] MEDS: LEVOFLOXACIN 500 MG TAB PO SCH (09:02)
[2019-01-30] MEDS: RIVASTIGMINE 1.5 MG CAP PO SCH ×2 (09:02→21:56)
[2019-01-30] MEDS: PANTOPRAZOLE (EC) 40 MG TAB PO SCH (09:02)
[2019-01-30] MEDS: LEVETIRACETAM 500 MG TAB PO SCH ×2 (09:02→20:27)
[2019-01-30] MEDS: CARBAMAZEPINE 200 MG TAB PO SCH ×2 (09:03→21:56)
[2019-01-30] MEDS: THIAMINE 100 MG TAB PO SCH (09:03)
[2019-01-30] MEDS: FOLIC ACID 1 MG TAB PO SCH (09:03)
[2019-01-30] MEDS: ARIPIPRAZOLE 5 MG TAB PO SCH (09:03)
[2019-01-30] MEDS: HEPARIN 5,000 UNIT/1 ML VIAL SC SCH ×2 (09:18→20:32)
[2019-01-30] MEDS: COLLAGENASE 5 GM (UD JAR) TOP SCH (09:19)
[2019-01-30] MEDS: NICOTINE (21 MG/24 HR) PATCH TRANSDERM SCH (09:20)
--- NOTE | 2019-01-30 13:54 | PN ---
Date/Time of Note Date/Time of Note DATE: 01/30/19 TIME: 13:48 Assessment/Plan VTE Prophylaxis Risk score (from Ns)>0 risk: 6 SCD applied (from Ns): No SCD contraindicated: other Pharmacological prophylaxis: heparin Lines/Catheters IV [facility]from [facility] [place] Assessment/Plan Hospital Course S: No acute events overnight. O: VS - see below PE: Constitutional: alert, well developed Head: normocephalic, atraumatic Eyes: nl conjunctiva, EOMI, nl lids, PERRL ENMT: nl external ears & nose, nl lips & teeth, nl nasal mucosa & septum Neck: supple, non-tender Respiratory: clear to auscultation, normal air movement; No crackles/rales, No diminished breath sounds, No tactile fremitus, No wheezing, No other Cardiovascular: regular rate and rhythm, No murmurs/extra sounds, No rub, No systolic murmur, No S3, No S4, No other Gastrointestinal: soft, non-tender; No ascites, No bowel sounds, No distended, No rebound or guarding No tender Musculoskeletal: nl extremities to inspection Extremities: normal pulses; No calf tenderness, No cyanosis, No clubbing, No edema, No pitting pedal edema, No palpable cord, No tenderness, No other Neurological: No focal deficits Assessment/Plan: 64 M p/w: 1. Acute encephalopathy, alcohol related, 30 beers a day-presently withdrawing, stable -Continue supportive care, continue PT 2. Alcoholism-see #1 -Continue thiamine/folic acid, ativan prn, counseled on cessation 3. Seizure disorder -Continue Keppra 4. Hypertension, stable 5. Hep C - [place] 6. Tobacco use, patch, counseled again on cessation 7. Acute bronchitis- levaquin 8. Major depression, psychiatry note reviewed -Continue antidepressant and antipsychotic medications as recommended by psychiatry team 8. DVT prophylaxis: heparin Result Diagram: 01/29/19 0538 01/30/19 0817 Results 24hrs Laboratory Tests Test 01/30/19 08:17 Sodium Level 140 Potassium Level 4.1 Chloride Level 103 Carbon Dioxide Level 26 Anion Gap 11 Blood Urea Nitrogen 10 Creatinine 0.52 L Est Glomerular Filtrat Rate mL/min > 60 Glucose Level 112 Lactic Acid Level 1.2 Calcium Level 9.8 Exam/Review of Systems Exam Vitals Vital Signs Date Temp Pulse Resp B/P (MAP) Pulse Ox O2 O2 Flow FiO2 Time Delivery Rate 01/30/19 79 12:00 01/30/19 98.0 20 135/75 94 11:09 (95) 01/30/19 Room Air 10:02 01/27/19 21 21:00 Intake and Output 01/29/19 01/29/19 01/30/19 1515:00 23:00 07:00 IntakeIntake Total 1500 ml 700 ml OutputOutput Total 300 ml 1300 ml BalanceBalance 1200 ml -600 ml Results Results 24hrs Laboratory Tests Test 01/30/19 08:17 Sodium Level 140 Potassium Level 4.1 Chloride Level 103 Carbon Dioxide Level 26 Anion Gap 11 Blood Urea Nitrogen 10 Creatinine 0.52 L Est Glomerular Filtrat Rate mL/min > 60 Glucose Level 112 Lactic Acid Level 1.2 Calcium Level 9.8 Medications Medication Current Medications IV Flush (NS 3 ml) 3 ml PER PROTOCOL IV ; Start 01/26/19 at 07:00 Ondansetron HCl (Zofran Inj) 4 mg Q6H PRN IV NAUSEA/VOMITING; Start 01/26/19 at 07:00 Acetaminophen (Tylenol Tab) 650 mg Q6H PRN PO .PAIN 1-3 OR TEMP; Start 01/26/19 at 07:00 Heparin Sodium (Porcine) (Heparin (5000 Units/1ml)) 5,000 unit Q12 SC Last administered on 01/30/19at 09:18; Admin Dose 5,000 UNIT; Start 01/26/19 at 09:00 Albuterol/ Ipratropium (Duoneb) 3 ml Q2H RESP THERAPY PRN HHN SHORTNESS OF BREATH Last administered on 01/26/19at 16:37; Admin Dose 3 ML; Start 01/26/19 at 07:00 Pantoprazole (Protonix Tab) 40 mg DAILY PO Last administered on 01/30/19 09:02; Admin Dose 40 MG; Start 01/26/19 at 09:00 Thiamine HCl (Vitamin B1) 100 mg DAILY PO Last administered on 01/30/19 09:03; Admin Dose 100 MG; Start 01/27/19 at 09:00 Folic Acid (Folic Acid) 1 mg DAILY PO Last administered on 01/30/19 09:03; Admin Dose 1 MG; Start 01/27/19 at 09:00 Levetiracetam (Keppra) 500 mg BID PO Last administered on 01/30/19 09:02; Admin Dose 500 MG; Start 01/26/19 at 13:00 Levofloxacin (Levaquin) 500 mg DAILY PO Last administered on 01/30/19 09:02; Admin Dose 500 MG; Start 01/26/19 at 13:00 Lorazepam (Ativan) 1 mg Q4H PRN IV AGITATION/ANXIETY Last administered on 09:37; Admin Dose 1 MG; Start 01/26/19 at 19:30 Collagenase (Santyl) 1 applic DAILY TOP Last administered on 01/30/19 09:19; Admin Dose 1 APPLIC; Start 01/27/19 at 10:30 Aripiprazole (Abilify) 5 mg DAILY PO Last administered on 01/30/19 09:03; Admin Dose 5 MG; Start 01/27/19 at 17:00 Carbamazepine (Tegretol) 200 mg BID PO Last administered on 01/30/19 09:03; Admin Dose 200 MG; Start 01/27/19 at 21:00 Mirtazapine (Remeron) 15 mg HS PO Last administered on 01/29/19 23:08; Admin Dose 15 MG; Start 01/27/19 at 21:00 Rivastigmine Tartrate (Exelon) 1.5 mg BID PO Last administered on 01/30/19 09:02; Admin Dose 1.5 MG; Start 01/27/19 at 21:00 Lorazepam (Ativan) 2 mg Q6H PRN PO ANXIETY Last administered on 01/29/19 11:37; Admin Dose 2 MG; Start 01/28/19 at 13:00 Acetaminophen/ Hydrocodone Bitart ([place] (5/325)) 1 tab Q4H PRN NGT MODERATE PAIN LEVEL 4-6 Last administered on 01/29/19 17:40; Admin Dose 1 TAB; Start 01/28/19 at 13:00 Nicotine (Nicoderm 21 Mg/ 24hr) 1 patch DAILY TRANSDERM Last administered on 01/30/19 09:20; Admin Dose 1 PATCH; Start 01/28/19 at 13:00 EDER ANDREWS Jan 30, 2019 13:53
[2019-01-30] MEDS: HYDROCODONE/APAP (5/325) TAB NGT PRN (17:40)
[2019-01-30] MEDS: LORAZEPAM 1 MG TAB PO PRN (20:27)
[2019-01-30] MEDS: MIRTAZAPINE 15 MG TAB PO SCH (20:27)
[2019-01-30] MEDS ORDERED: ZOLPIDEM 5 MG TAB PO ONE (22:08)
[2019-01-31] VITALS (8 sets, daily range): BP systolic 124–159; BP diastolic 78–99; PULSE 73–90; RESP 18–21
[2019-01-31] MEDS: HYDROCODONE/APAP (5/325) TAB NGT PRN ×2 (02:19→09:30)
[2019-01-31] MEDS: LORAZEPAM 1 MG TAB PO PRN (03:47)
[2019-01-31] MEDS ORDERED: COLLAGENASE 5 GM (UD JAR) TOP SCH (09:00)
[2019-01-31] MEDS: NICOTINE (21 MG/24 HR) PATCH TRANSDERM SCH ×2 (09:00→09:20)
[2019-01-31] MEDS: ARIPIPRAZOLE 5 MG TAB PO SCH (09:15)
[2019-01-31] MEDS: THIAMINE 100 MG TAB PO SCH (09:16)
[2019-01-31] MEDS: RIVASTIGMINE 1.5 MG CAP PO SCH (09:16)
[2019-01-31] MEDS: PANTOPRAZOLE (EC) 40 MG TAB PO SCH (09:16)
[2019-01-31] MEDS: CARBAMAZEPINE 200 MG TAB PO SCH (09:16)
[2019-01-31] MEDS: LEVOFLOXACIN 500 MG TAB PO SCH (09:17)
[2019-01-31] MEDS: FOLIC ACID 1 MG TAB PO SCH (09:17)
[2019-01-31] MEDS: LEVETIRACETAM 500 MG TAB PO SCH (09:17)
[2019-01-31] MEDS: HEPARIN 5,000 UNIT/1 ML VIAL SC SCH (09:18)
--- NOTE | 2019-01-31 09:27 | PN ---
Date/Time of Note Date/Time of Note DATE: 01/31/19 TIME: 09:26 Assessment/Plan VTE Prophylaxis Risk score (from Ns)>0 risk: 5 SCD applied (from Ns): No SCD contraindicated: other Pharmacological prophylaxis: heparin Lines/Catheters IV Catheter Type [facility]from [facility]): Saline Lock Assessment/Plan Hospital Course S: Per nursing staff, patient a bit more awake and alert today. Still in rest raints. Seen by physical therapy team yesterday. O: VS - see below PE: Constitutional: alert, well developed Head: normocephalic, atraumatic Eyes: nl conjunctiva, EOMI, nl lids, PERRL ENMT: nl external ears & nose, nl lips & teeth, nl nasal mucosa & septum Neck: supple, non-tender Respiratory: clear to auscultation, normal air movement; No crackles/rales, No diminished breath sounds, No tactile fremitus, No wheezing, No other Cardiovascular: regular rate and rhythm, No murmurs/extra sounds, No rub, No systolic murmur, No S3, No S4, No other Gastrointestinal: soft, non-tender; No ascites, No bowel sounds, No distended, No rebound or guarding No tender Musculoskeletal: nl extremities to inspection Extremities: normal pulses; No calf tenderness, No cyanosis, No clubbing, No edema, No pitting pedal edema, No palpable cord, No tenderness, No other Neurological: No focal deficits Assessment/Plan: 64 M p/w: 1. Acute encephalopathy, alcohol related, 30 beers a day-presently withdrawing- improving, appears more stable -Continue supportive care, continue PT -We will get social work consult 2. Alcoholism-see #1 -Continue thiamine/folic acid, ativan prn, counseled on cessation 3. Seizure disorder -Continue Keppra 4. Hypertension, stable 5. Hep C - montior 6. Tobacco use, patch, counseled again on cessation 7. Acute bronchitis- levaquin 8. Major depression, psychiatry note reviewed -Continue antidepressants and antipsychotic medications as recommended by psychiatry team 8. DVT prophylaxis: heparin Result Diagram: 01/29/19 0538 01/30/19 0817 Exam/Review of Systems Exam Vitals Vital Signs Date Temp Pulse Resp B/P (MAP) Pulse Ox O2 O2 Flow FiO2 Time Delivery Rate 01/31/19 98.0 73 18 159/91 96 Room Air 08:02 (113) 01/27/19 21 21:00 Intake and Output 01/30/19 01/30/19 01/31/19 1515:00 23:00 07:00 IntakeIntake Total 120 ml 1040 ml OutputOutput Total 250 ml 650 ml BalanceBalance -130 ml 390 ml Medications Medication Current Medications IV Flush (NS 3 ml) 3 ml PER PROTOCOL IV ; Start 01/26/19 at 07:00 Ondansetron HCl (Zofran Inj) 4 mg Q6H PRN IV NAUSEA/VOMITING; Start 01/26/19 at 07:00 Acetaminophen (Tylenol Tab) 650 mg Q6H PRN PO .PAIN 1-3 OR TEMP; Start 01/26/19 at 07:00 Heparin Sodium (Porcine) (Heparin (5000 Units/1ml)) 5,000 unit Q12 SC Last administered on 01/31/19 09:18; Admin Dose 5,000 UNIT; Start 01/26/19 at 09:00 Albuterol/ Ipratropium (Duoneb) 3 ml Q2H RESP THERAPY PRN HHN SHORTNESS OF BREATH Last administered on 01/26/19at 16:37; Admin Dose 3 ML; Start 01/26/19 at 07:00 Pantoprazole (Protonix Tab) 40 mg DAILY PO Last administered on 01/31/19 09:16; Admin Dose 40 MG; Start 01/26/19 at 09:00 Thiamine HCl (Vitamin B1) 100 mg DAILY PO Last administered on 01/31/19 09:16; Admin Dose 100 MG; Start 01/27/19 at 09:00 Folic Acid (Folic Acid) 1 mg DAILY PO Last administered on 01/31/19 09:17; Admin Dose 1 MG; Start 01/27/19 at 09:00 Levetiracetam (Keppra) 500 mg BID PO Last administered on 01/31/19 09:17; Adm in Dose 500 MG; Start 01/26/19 at 13:00 Levofloxacin (Levaquin) 500 mg DAILY PO Last administered on 01/31/19 09:17; Admin Dose 500 MG; Start 01/26/19 at 13:00 Lorazepam (Ativan) 1 mg Q4H PRN IV AGITATION/ANXIETY Last administered on 01/30/19 09:37; Admin Dose 1 MG; Start 01/26/19 at 19:30 Aripiprazole (Abilify) 5 mg DAILY PO Last administered on 01/31/19 09:15; Admin Dose 5 MG; Start 01/27/19 at 17:00 Carbamazepine (Tegretol) 200 mg BID PO Last administered on 01/31/19 09:16; Admin Dose 200 MG; Start 01/27/19 at 21:00 Mirtazapine (Remeron) 15 mg HS PO Last administered on 01/30/19 20:27; Admin Dose 15 MG; Start 01/27/19 at 21:00 Rivastigmine Tartrate (Exelon) 1.5 mg BID PO Last administered on 01/31/19 09:16; Admin Dose 1.5 MG; Start 01/27/19 at 21:00 Lorazepam (Ativan) 2 mg Q6H PRN PO ANXIETY Last administered on 01/31/19 03:47; Admin Dose 2 MG; Start 01/28/19 at 13:00 Acetaminophen/ Hydrocodone Bitart (Garber (5/325)) 1 tab Q4H PRN NGT MODERATE PAIN LEVEL 4-6 Last administered on 01/31/19 02:19; Admin Dose 1 TAB; Start 01/28/19 at 13:00 Nicotine (Nicoderm 21 Mg/ 24hr) 1 patch DAILY TRANSDERM Last administered on 01/30/19 09:20; Admin Dose 1 PATCH; Start 01/28/19 at 13:00 Collagenase (Santyl) 1 applic BID TOP Last administered on 01/31/19 09:18; Admin Dose 1 APPLIC; Start 01/31/19 at 09:00 EDER ANDREWS Jan 31, 2019 09:27
--- NOTE | 2019-01-31 14:01 | PDOCDIS ---
Discharge Instructions CONDITION [id number] Patient Condition: [id number] Stable ACTIVITY: Kaeps2Do Activity Restrictions: [id number] Slowly Increase Activity Rest between Activity Avoid heavy lifting FOLLOW UP/APPOINTMENTS Follow-up Plan Please take your medications as prescribed, see your doctor in the clinic in the next 1 week EDER ANDREWS Jan 31, 2019 14:01
[2019-01-31] MEDS ORDERED: ARIP5TAB20 PO (14:07)
[2019-01-31] MEDS ORDERED: MIRT15TA5 PO (14:07)
[2019-01-31] MEDS ORDERED: CARB200T3 PO (14:07)
[2019-01-31] MEDS ORDERED: PANT40TA3 PO (14:07)
[2019-01-31] MEDS ORDERED: FOLI-49 PO (14:07)
[2019-01-31] MEDS ORDERED: NICO-546 TRANSDERM (14:07)
[2019-01-31] MEDS ORDERED: THIA100T56 PO (14:07)
[2019-01-31] MEDS ORDERED: RIVA1.5C2 PO (14:07)
--- NOTE | 2019-01-31 14:14 | DS ---
Date/Time of Note Date/Time of Note DATE: 01/31/19 TIME: 14:09 Discharge Summary Admission/Discharge Info Admit Date/Time Jan 27, 2019 at 06:57 Discharge Date/Time Discharge Diagnosis 1. Acute encephalopathy, alcohol related and possible Ambien overdose related, 30 beers a day 2. Alcoholism- counseled on cessation 3. seizure disorder 4. Hypertension 5. Hep C 6. Tobacco use, patch, counseled again on cessation 7. Acute bronchitis- levaquin 8. Major depression, psychiatry note reviewed -Continue antidepressants and antipsychotic medications as recommended by psychiatry team Patient Condition: Stable Hx of Present Illness 64-year-old male with a history of hypertension, seizure, hep C, history of intentional overdose, likely on Power and Ambien in 2016. Patient was brought to the ER for altered mentation. Patient appears restless and is not oriented and as such information is gathered from chart review and from the ER physician. Reportedly, patient woke up in the middle of the night and was noted to be altered. In the ER blood pressure was as high as 173/98. Head CT negative for acute findings. Basic labs within acceptable range. U tox was negative Hospital Course Patient was admitted, seen by psychiatry team during the hospital stay. His acute encephalopathy and overall withdrawal symptoms improved. He was placed back on seizure medications Keppra which he takes at home for prior history of seizures but again did not have any seizure activity while he was here in the hospital. He became more awake and alert, able to ambulate, tolerated p.o. diet. He worked in physical therapy recommended front wheel walker. He continued on thiamine, multivitamin, folic acid. It was thought that he may have had Ambien overdose as well but again he became more awake and alert and his encephalopathy resolved. Psychiatry team recommended restarting patient's home antipsychotic antidepressant medications with the patient took and was able to tolerate. Because the patient is clinically improved today he will be discharged home today in improved condition. See below for full list of disch arge medications. Home Meds Active Scripts Thiamine* (Vitamin B-1*) 100 Mg Tablet, 100 MG PO DAILY, #30 TAB 3 Refills Prov:EDER ANDREWS S. 01/31/19 Folic Acid* (Folic Acid*) 1 Mg Tablet, 1 MG PO DAILY, #30 TAB 3 Refills Prov:EDER ANDREWS S. 01/31/19 Mirtazapine* (Mirtazapine*) 15 Mg Tablet, 15 MG PO HS, #30 TAB 4 Refills Prov:EDER ANDERWS S. 01/31/19 Carbamazepine (Carbamazepine) 200 Mg Tablet, 200 MG PO BID, #60 TAB 4 Refills Prov:EDER ANDREWS S. 01/31/19 Nicotine* (Nicotine* Patch) 21 mg/day Patch, 1 PATCH TRANSDERM DAILY, #1 BOTTLE 2 Refills Prov:EDER ANDREWS S. 01/31/19 Aripiprazole (Aripiprazole) 5 Mg Tablet, 5 MG PO DAILY for 30 Days, #30 TAB 4 Refills Prov:EDER ANDREWS S. 01/31/19 Rivastigmine Tartrate* (Rivastigmine Tartrate*) 1.5 Mg Capsule, 1.5 MG PO BID for 30 Days, #60 CAP 4 Refills Prov:EDER ANDREWS S. 01/31/19 Pantoprazole* (Protonix*) 40 Mg Tablet.dr, 40 MG PO DAILY, #30 3 Refills Prov:EDER ANDREWS S. 01/31/19 Reported Medications Zolpidem Tartrate* (Zolpidem Tartrate*) 10 Mg Tablet, 10 MG PO for 30 Days, #30 01/26/19 Lisinopril* (Lisinopril*) 40 Mg Tablet, 40 MG PO DAILY for 30 Days, #30 01/26/19 Paroxetine Hcl* (Paxil*) 40 Mg Tablet, 40 MG PO DAILY 09/29/13 Discontinued Reported Medications Carisoprodol* (Carisoprodol*) 350 Mg Tablet, 350 MG PO Q8 PRN for MUSCLE SPASMS for 20 Days, #60 TAB 01/26/19 Alprazolam* (Alprazolam*) 1 Mg Tablet, 1 MG PO Q8H PRN for ANXIETY for 15 Days, #30 01/26/19 Mirtazapine* (Mirtazapine*) 15 Mg Tablet, 15 MG PO DAILY for 30 Days, #30 01/26/19 Carbamazepine (Carbamazepine) 200 Mg Tablet, 200 MG PO DAILY for 30 Days, #90 01/26/19 Risperidone* (Risperidone*) 2 Mg Tablet, 2 MG PO HS 09/29/13 Hydrochlorothiazide* (Hydrochlorothiazide*) 25 Mg Tab, 12.5 MG GTB DAILY 09/29/13 Lisinopril* (Lisinopril*) 30 Mg Tablet, 40 MG PO DAILY 09/29/13 Discontinued Scripts Multivitamins* (Multivitamin*) 1 Udcap Capsule, 1 TAB PO DAILY for 30 Days, TAB Prov:ALBERTO ZAMBRANO 05/09/16 Follow-up Plan Please take your medications as prescribed, see your doctor in the clinic in the next 1 week Primary Care Provider Not On Staff Doctor Time spent on discharge: > 30 minutes EDER ANDREWS Jan 31, 2019 14:14
== END 2019-01-31 15:15 | disposition home or self-care (01) | DRG 56 ==
LOC: E/R 02:49 → 6WM 05:39 → EDBEDREQ 07:20 → 6WM 21:23 → OBSVTOIN 01-27 06:57 → 5EC 01-30 16:28
PROVIDERS: ADMIT Internal Medicine; ATTEND Hospitalist
DX: G31.2 Degeneration of nervous system due to alcohol (principal); G92 Toxic encephalopathy; F33.3 Major depressive disorder, recurrent, severe with psychotic symptoms; F10.288 Alcohol dependence with other alcohol-induced disorder; T42.6X1A Poisoning by other antiepileptic and sedative-hypnotic drugs, accidental (unintentional), initial encounter; J20.9 Acute bronchitis, unspecified; I10 Essential (primary) hypertension; B18.2 Chronic viral hepatitis C; E86.0 Dehydration; G40.909 Epilepsy, unspecified, not intractable, without status epilepticus; Z72.0 Tobacco use; Y92.003 Bedroom of unspecified non-institutional (private) residence as the place of occurrence of the external cause
CPT/HCPCS: 70450; 70551; 71045; 80048; 80053; 80307; 81003; 82140; 83605; 83735; 84484; 85025; 85610; 85730; 87086; 87400; 92526; 92610; 93005; 94664; 97116; 97162; 97530; G0378; J0360; J1200; J1630; J1644; J2060; J7042